=== PATIENT | male | born 1940 | race Caucasian/White ===

== ENCOUNTER 2020-03-28 23:16 | Inpatient (IN) | payer MEDICARE, MEDICAID, SELFPAY ==
--- NOTE | 2020-03-28 23:19 | P.HP_ITS ---
Providers/Chief Complaint Primary Care Provider: Yash Salinas Chief Complaint: CP History of Present Illness Kelvin Flores is a 80 year old male with history of grade 1 diastolic dysfunction, negative stress test 03/19, COPD, was recently started on Lasix by Dr. Justice on 03/15 for mild diastolic congestive heart failure exacerbation came in from [facility] for chest pain. Patient is stating that he has been having epigastric discomfort for last 2 to 3 weeks especially on exertion, sometimes he has to get up to change his position in order to make himself comfortable, today around 2 PM he started experiencing excruciating epigastric pain radiating towards his back he thought he is going to . He went to the [facility] for further evaluation where first troponin was 44 and second troponin 47 EKG showed premature atrial beats with tachycardia, patient symptoms got relieved with morphine and Dilaudid, CT abdomen did not reveal any ischemic bowel changes. Patient is stating that there is no relationship to food intake with his epigastric pain, he is describing this pain as sharp stabbing pain radiating towards his back 06/10, he is not stating chest discomfort, he is denying diarrhea, nausea, vomiting, palpitations, presyncope. He is taking prednisone and meloxicam, has history of peptic ulcer disease as well. He is not very active at baseline, lives alone, quit smoking 2005. Investigation from [facility] and lab work reviewed On arrival to the hospital blood pressure 136/94, afebrile, currently symptom- free I have requested CTA chest abdomen pelvis to rule out aortic dissection Make him n.p.o. Start ACS protocol Review of Systems Const: Reports: body aches and fatigue; Denies: fever(s) or chills Eyes: Denies: change in vision ENMT: Denies: throat pain Card: Reports: chest pain, swelling of feet/ankles and dyspnea on exertion; Denies: orthopnea Resp: Reports: dyspnea GI: Reports: abdominal pain and heartburn; Denies: nausea, vomiting, diarrhea or constipation : Denies: flank pain Musc: Denies: neck pain Skin/Breast: Denies: rash Neuro: Denies: headache(s) Psych: Denies: anxiety Endo: Denies: polyuria Jerardo/Lymph: Denies: easy bruising All/Imm: Denies: urticaria Medications/Allergies Home Medications Medication Instructions Recorded Confirmed Last Taken Type acetaminophen 500 mg tablet 1,000 mg PO BID PRN 03/15/20 03/29/20 03/28/20 09:00 History albuterol sulfate 90 mcg/actuation 2 puff INHALATION Q6H PRN 03/15/20 Unknown History aerosol inhaler amlodipine 10 mg tablet 10 mg PO DAILY 03/15/20 Unknown History budesonide 0.5 mg/2 mL suspension 0.5 mg INHALATION BID 30 Days #120 03/15/20 03/15/20 Unknown Rx for nebulization ml budesonide-formoterol HFA 160 2 puff INHALATION BID 03/15/20 Unknown History mcg-4.5 mcg/actuation aerosol inhaler finasteride 5 mg tablet 5 mg PO DAILY 03/15/20 Unknown History formoterol fumarate 20 mcg/2 mL 2 ml INHALATION Q12H 30 Days #120 03/15/20 03/15/20 Unknown Rx solution for nebulization ml furosemide 20 mg tablet 20 mg PO DAILY 30 Days #30 tab 03/15/20 03/15/20 Unknown Rx ipratropium 0.5 mg-albuterol 3 mg 3 ml INHALATION Q6H PRN 03/15/20 Unknown History (2.5 mg base)/3 mL nebulization soln lidocaine 5 % topical patch 1 patch TOPICAL DAILY 03/15/20 Unknown History omeprazole 20 mg capsule,delayed 20 mg PO DAILY 03/15/20 Unknown History release prednisone 10 mg tablet 10 mg PO DAILY 03/15/20 Unknown History revefenacin 175 mcg/3 mL solution 175 mcg INHALATION DAILY 30 Days 03/15/20 03/15/20 Unknown Rx for nebulization #90 ml tiotropium bromide 18 mcg capsule 1 cap INHALATION DAILY 03/15/20 Unknown History with inhalation device Allergies Allergy/AdvReac Type Severity Reaction Status Date / Time dextromethorphan Allergy Intermediate ALGY-Difficulty Verified 03/15/20 16:49 Breathing guaifenesin Allergy Intermediate ALGY-Difficulty Verified 03/15/20 16:49 Breathing tamsulosin Allergy Intermediate ALGY-Difficulty Verified 03/15/20 16:49 Breathing gabapentin AdvReac Intermediate ADR-Dizzine Verified 03/15/20 16:49 ss loratadine AdvReac Intermediate ADR-Vomitin Verified 03/15/20 15:26 g PFSH Acute PFSH: Medical History Acute and chronic respiratory failure Benign hypertension Blind right eye BPH (benign prostatic hyperplasia) CAP (community acquired pneumonia) Chronic obstructive pulmonary disease GERD (gastroesophageal reflux disease) Old NH (myocardial infarction) PUD (peptic ulcer disease) Tremor Surgical History H/O eye surgery History of cholecystectomy S/P hernia surgery Family History Other CAD (coronary artery disease) Diabetes Social History Smoking and tobacco status: former smoker Quit status (tobacco): has quit using tobacco Year quit tobacco: 2005 - 1PPD x 40 Years Alcohol intake: never Lives independently: Yes Household members: none Marital status: / service: No Current occupational status: retired History of recent travel: No Current gender identity: Male Physical Exam Narrative: EXAM NARRATIVE: Head to toe examination This is a pleasant male who is currently symptom-free laying comfortable in his bed S1, S2 grade 2/6 systolic murmur appreciated Lower extremity edema 2+ Abdomen distended, mild tenderness in mid epigastric region, no pulsatile mass seen, bowel sounds present No radial delay identified No hemodynamic compromise Bilateral breath sounds diminished without active wheezing EOMI, PERRLA No active skin ulcers Neuro extremity gangrene or ulcer Neurologically nonfocal exam Data : 03/29/20 00:45 03/29/20 00:45 A&P Assessment and plan (1) Atypical chest pain: Status: Acute (2) CHF exacerbation: Status: Acute (3) Epigastric pain: Status: Acute Additional A&P Information Atypical chest pain Patient is describing his symptoms as epigastric pain which gets aggravated with change in position, he is describing his pain as sharp stabbing in nature which is radiating towards his back Rule out aortic dissection, however clinically no vascular compromise, would get CTA Echo in the morning to see wall motion abnormality Would get another set of troponin with serial EKGs, considering the fact he had a stress test done around same time last year, I would not repeated at this point, will get cardiology input in the morning, I would start aspirin, statin, Plavix lisinopril, give GI cocktail Current EKG showing ectopic atrial beats without any ischemic or infarctive changes Diastolic congestive heart failure exacerbation Grade 1 diastolic dysfunction Patient recently started using Lasix about 2 weeks ago He has 2+ lower extremity edema We will follow-up with echo COPD: No active exacerbation He is following up with Dr. Justice for his severe class D COPD DuoNeb every 6 hours Levaquin for right lower lobe concerning changes for pneumonia History of peptic ulcer disease: Continue Protonix, hold meloxicam, prednisone and GI cocktail x1 Full code N.p.o. DVT prophylaxis not needed currently getting therapeutic dose of Lovenox Attestations Medical Necessity Statement*: Anticipating stay in the hospital cross more than 2 midnights currently need evaluation to rule out etiology for his epigastric discomfort, on ACS protocol, need to rule out aortic dissection, awaiting CTA results Time Spent in Patient Care: (>than 50% of time spent in counselling and/or dir ect pt care on unit) . 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
[2020-03-28 23:21] VITALS: BP 139/88; PULSE 74; RESP 22; TEMP 36.7; O2SAT 98; BMI 27.8
--- NOTE | 2020-03-28 23:22 | ED_ITS ---
HPI - Chest Pain General: Stated Complaint: CP Time Seen by Provider: 03/28/20 23:16 Source: patient and EMS Mode of arrival: EMS Limitations: no limitations History of Present Illness: HPI narrative: 80-year-old male who presents here with chest pain. Patient was seen at [facility] and transferred here for admittance for ACS rule out. Patient is currently pain-free. He has no COVID-like symptoms and no fever. He does have a history of COPD. CT abdomen at [facility] was negative. Troponin was elevated. MD complaint: chest pain Associated symptoms: Reports dyspnea; Deny abdominal pain, fever(s), nausea or vomiting Review of Systems Const: Denies: fever(s), chills, body aches or change in appetite Eyes: Denies: blurry vision or eye discomfort ENMT: Denies: throat pain or dental pain Card: Reports: chest pain Resp: Reports: dyspnea GI: Denies: abdominal pain, nausea, vomiting or diarrhea : Denies: dysuria Musc: Denies: neck pain or back pain Skin/Breast: Denies: rash Neuro: Denies: headache(s) Psych: Denies: depression Jerardo/Lymph: Denies: easy bruising All/Imm: Denies: urticaria PFSH ED PFSH: Medical History (Updated 03/28/20 @ 23:24 by Amando Rico MD) Acute and chronic respiratory failure Benign hypertension Blind right eye BPH (benign prostatic hyperplasia) CAP (community acquired pneumonia) Chronic obstructive pulmonary disease GERD (gastroesophageal reflux disease) Old [place] (myocardial infarction) PUD (peptic ulcer disease) Tremor Surgical History H/O eye surgery History of cholecystectomy S/P hernia surgery Family History Other CAD (coronary artery disease) Diabetes Social History Smoking and tobacco status: former smoker Quit status (tobacco): has quit using tobacco Year quit tobacco: 2005 - 1PPD x 40 Years Alcohol intake: never Lives independently: Yes Household members: none Marital status: / service: No Current occupational status: retired History of recent travel: No Current gender identity: Male Physical Exam Const: COMMON NORMALS: no acute distress, patient oriented x3 and healthy appearing HENMT: COMMON NORMALS: normocephalic and atraumatic HEAD & SCALP: normoc ephalic and atraumatic Eye: COMMON NORMALS: Equal, round and reactive pupils present and EOMs intact bilaterally PUPIL: Yes Equal, round and reactive pupils present Neck/C-Spine: COMMON NORMALS: full ROM and supple Chest: COMMONS NORMALS: normal inspection of the chest and normal palpation of entire chest wall Resp: COMMON NORMALS: normal respiratory effort, No retractions, No use of accessory muscles and clear to auscultation bilaterally AUSCULTATION: clear to auscultation bilaterally Cardio: COMMON NORMALS: regular rate, regular rhythm and No murmurs present (Cardio) RATE: regular rate RHYTHM: regular rhythm GI: COMMON NORMALS: Normal to inspection, nondistended, normoactive bowel sounds present, Soft to palpation, non-tender and no masses PALPATION: Yes Soft to palpation Extremity: COMMON NORMALS: normal to inspection and full ROM Neuro: COMMON NORMALS: patient oriented x3, moves all extremities and no focal motor deficits Psych: COMMON NORMALS: mental status grossly normal, Normal thought process present and cooperative THOUGHT PROCESS: Normal thought process present Skin: COMMON NORMALS: no rashes or lesions noted and no wounds GENERAL SKIN EXAM: no rashes or lesions noted MDM - Chest Pain MDM Narrative: Medical decision making narrative: Patient presents with chest pain and is to be admitted to Dr. Orantes. Patient is pain-free here and has no cold-like symptoms. Will admit to the cardiac stepdown unit. Discharge Plan Discharge Patient Disposition: Admitted As Inpatient Clinical Impression: Chest pain Condition: Stable Prescriptions: No Action prednisone 10 mg tablet 10 mg PO DAILY RF: 0 albuterol sulfate 90 mcg/actuation HFA aerosol inhaler 2 puff INHALATION Q6H PRNRF: 0 Spiriva with HandiHaler 18 mcg capsule, w/inhalation device 1 cap INHALATION DAILY RF: 0 amlodipine 10 mg tablet 10 mg PO DAILY RF: 0 finasteride [Proscar] 5 mg tablet 5 mg PO DAILY RF: 0 omeprazole 20 mg capsule,delayed release(DR/EC) 20 mg PO DAILY RF: 0 budesonide-formoterol [Symbicort] 160-4.5 mcg/actuation HFA aerosol inhaler 2 puff INHALATION BID RF: 0 lidocaine 5 % adhesive patch,medicated 1 patch TOPICAL DAILY RF: 0 ipratropium-albuterol 0.5 mg-3 mg(2.5 mg base)/3 mL solution for nebulization 3 ml INHALATION Q6H PRNRF: 0 acetaminophen [Tylenol Extra Strength] 500 mg tablet 500 mg PO Q6H PRNRF: 0 furosemide [Lasix] 20 mg tablet 20 mg PO DAILY 30 Days Qty: 30 RF: 0 revefenacin 175 mcg/3 mL solution for nebulization 175 mcg INHALATION DAILY 30 Days Qty: 90 RF: 3 budesonide [Pulmicort] 0.5 mg/2 mL suspension for nebulization 0.5 mg INHALATION BID 30 Days Qty: 120 RF: 3 Perforomist 20 mcg/2 mL solution for nebulization 2 ml INHALATION Q12H 30 Days Qty: 120 RF: 3 Referrals: Yash Salinas [Primary Care Provider] - Coding Level of Care Code ED Sound Controller for Chari Ortiz
[2020-03-28 23:26] VITALS: BP 139/88; PULSE 72; RESP 14; O2SAT 97
[2020-03-28 23:50] VITALS: BP 133/83; PULSE 74; RESP 16; O2SAT 97
--- NOTE | 2020-03-28 23:55 | PC.NURSE ---
i agree with this assessment
[2020-03-29] VITALS (17 sets, daily range): BP systolic 113–136; BP diastolic 72–94; PULSE 76–117; RESP 16–23; TEMP 36.3–37.3; O2SAT 92–98
--- NOTE | 2020-03-29 00:16 | USCV_ITS ---
Kelvin Flores Age: 80 Gender: M : 1940 Exam Date: 03/29/2020 06:57 Ordering Phys: Lobito Shepherd MD Technologist: Lyric Padilla Exam Location: [facility] [place] Indication: NSTEMI BP: 113 / 74 HR: 84 Rhythm: Sinus Technical Quality: Technically difficult study MEASUREMENTS (Male / Female) Normal Values 2D ECHO LV Diastolic Diameter PLAX 3.3 cm 4.2 - 5.9 / 3.9 - 5.3 cm LV Systolic Diameter PLAX 1.9 cm LV Chamber Size 3.8 cm IVS Diastolic Thickness 1.4 cm 0.6 - 1.0 / 0.6 - 0.9 cm IVS Systolic Thickness 1.7 cm LVPW Diastolic Thickness 1.7 cm 0.6 - 1.0 / 0.6 - 0.9 cm LVPW Systolic Thickness 1.7 cm RV Chamber Size 3.1 cm LVOT Diameter 2.0 cm LV Ejection Fraction 2D Teich 74.3 % LV Ejection Fraction MOD 2C 36.9 % LV Ejection Fraction 2C AL 33.4 % LA Diameter 5.0 cm LA Width 2.3 cm LA Height 4.3 cm RA Width 2.9 cm RA Height 3.6 cm Aorta at Sinotubular Diameter 3.8 cm M-MODE LV Diastolic Diameter MM 7.3 cm 4.2 - 5.9 / 3.9 - 5.3 cm LV Systolic Diameter MM 6.2 cm LV Ejection Fraction MM Teich 31.0 % IVS Diastolic Thickness MM 1.4 cm 0.6 - 1.0 / 0.6 - 0.9 cm IVS Systolic Thickness MM 2.1 cm LVPW Diastolic Thickness MM 1.9 cm 0.6 - 1.0 / 0.6 - 0.9 cm LVPW Systolic Thickness MM 2.3 cm Aortic Annulus Diameter 4.1 cm LA Ao Ratio MM 1.2 MV E Point Septal Separation 0.8 cm DOPPLER AV Peak Velocity 136.0 cm/s LVOT Peak Velocity 99.0 cm/s AV Area Cont Eq vti 3.0 cm squared AV Area Cont Eq pk 2.3 cm squared MV Area PHT 3.9 cm squared Mitral E to A Ratio 0.6 MV E' Velocity 6.0 cm/s Mitral E to MV E' Ratio 9.2 Mitral E to LV E' Lateral Ratio 8.6 Mitral E to LV E' Septal Ratio 10.1 TR Peak Velocity 225.7 cm/s TR Peak Gradient 20.4 mmHg TR Mean Velocity 167.0 cm/s TR Mean Gradient 13.2 mmHg TR Velocity Time Integral 67.5 cm Right Atrial Pressure 5.0 mmHg Pulmonary Artery Systolic Pressu 25.4 mmHg PV Peak Velocity 85.0 cm/s RV Acceleration Time 0.2 s RV Ejection Time 0.3 s RV AcT/ET 0.6 FINDINGS Left Ventricle Normal left ventricular size and systolic function, EF 74%. No gross wall motion normalities.Grade I/IV diastolic dysfunction (abnormal relaxation filling pattern), normal to mildly elevated filling pressures. Right Ventricle The right ventricle is normal in size and function. Right Atrium The right atrium is normal in size. Left Atrium The left atrium is normal in size. Mitral Valve No gross abnormalities noted Aortic Valve Thickened aortic valve. Tricuspid Valve Trace tricuspid valve regurgitation. Pulmonic Valve Pulmonic valve not well visualized. Pericardium Normal pericardium without effusion. Aorta Prominent right coronary sinus CONCLUSIONS Normal left ventricular size and systolic function, EF 74%. No gross wall motion normalities.Grade I/IV diastolic dysfunction (abnormal relaxation filling pattern), normal to mildly elevated filling pressures. Thickened aortic valve. Trace tricuspid valve regurgitation. Estimated pulmonary artery peak systolic pressure 25 mmHg There is no pericardial effusion. There are no intracardiac masses. Prominent right coronary sinus, aortic root measuring 3.8 cm at the level of the sinuses No previous study is available for comparison. Dr Flakita Hernández MD FAC (Electronically Signed) Final Date: 29 March 2020 09:40 S
--- NOTE | 2020-03-29 00:16 | ECG_ITS ---
[facility] Test Date: 2020-03-28 Pat Name: Kelvin Flores Department: Room: 111 Gender: Male Check Grader: Roxie PHILLIPSB: 1940 Requested By: Lobito Shepherd Order Number: [id number] Julissa MD: Flakita Hernández M.D. Measurements Intervals [place] Rate: 78 P: 71 NV: 131 QRS: 69 QRSD: 134 T: 49 QT: 392 QTc: 447 Interpretive Statements SINUS RHYTHM RIGHT BUNDLE BRANCH BLOCK [120+ ms QRS DURATION, UPRIGHT V1, 40+ ms S IN I/aVL/V4/V5/V6] Compared to ECG 02/27/2019 05:58:25 No significant changes Electronically Signed On 03-30-2020 0:18:43 CDT by Flakita Hernández M.D. [id number]
--- NOTE | 2020-03-29 00:30 | PC.NURSE ---
Patient brought down by wheelchair. Patient is alert and oriented. Patient placed on telemetry and vitals obtained. Med list not obtained due to patient not being for sure what he takes, no list or bottles brought with patient. Patient uses [facility] in [facility]. Patient updated on vistor policy, password given to patient, and patient is wearing a mask. Will continue to monitor.
[2020-03-29] MEDS: atorvastatin 40 mg Tablet 80 MG PO (00:33)
[2020-03-29] MEDS: clopidogrel 300 mg Tablet PO (00:34)
[2020-03-29] MEDS: enoxaparin 100 mg/mL Syringe 90 MG SUBCUT ×2 (00:34→12:40)
[2020-03-29 00:53] LABS: Basophils # 0.1 10^3/uL (0.0-0.1); Basophils % 0.6 %; Eosinophils # 0.1 10^3/uL (0.0-0.8); Eosinophils % 1.1 %; Hematocrit 48.9 % (42.0-52.0); Hemoglobin 15.4 g/dL (11.7-16.6); Lymphocytes # 2.3 10^3/uL (0.8-4.8); Lymphocytes % 18.8 %; Mean Corpuscular HGB Conc 31.5 g/dL (30.0-36.0); Mean Corpuscular Hemoglobin 28.9 pg (28.0-34.0); Mean Corpuscular Volume 91.9 fL (80-94); Mean Platelet Volume 9.2 fL (7.4-10.4); Monocytes # 0.9 10^3/uL (0.2-0.9); Monocytes % 7.6 %; Neutrophils # 8.82 10^3/uL (1.8-7.7); Neutrophils % 71.2 %; Nucleated Red Blood Cells % 0 %; Platelet Count 216 10^3/cmm (130-400); Red Blood Count 5.32 10^6/uL (4.1-5.3); Red Cell Distribution Width 13.6 % (12.1-15.1); White Blood Count 12.4 10^3/uL (4.0-10.0)
--- NOTE | 2020-03-29 00:55 | CTR_ITS ---
PROCEDURE INFORMATION: Exam: CT Angiography Chest With Contrast Exam date and time: 03/29/2020 1:22 AM Age: 80 years old Clinical indication: Abdominal pain; Generalized; Chest pain; Type not specified; Prior surgery; Surgery type: Hernia repair, gb; Additional info: Sharp pain going towards back TECHNIQUE: Imaging protocol: Computed tomographic angiography of the chest with intravenous contrast. 3D rendering: MIP and/or 3D reconstructed images were created by the technologist. Radiation optimization: All CT scans at this facility use at least one of these dose optimization techniques: automated exposure control; mA and/or kV adjustment per patient size (includes targeted exams where dose is matched to clinical indication); or iterative reconstruction. Contrast material: OMNI 350; Contrast volume: 95 ml; Contrast route: INTRAVENOUS (IV); COMPARISON: No relevant prior studies available. RADIATION DOSE METRICS: Total DLP (mGy-cm): 1921.99 FINDINGS: Pulmonary arteries: The pulmonary arteries are adequately opacified for evaluation to the subsegmental level. There is no filling defect to suggest embolism. Aorta: There is moderate aortic atherosclerotic disease. There is no aortic dissection or aneurysm. Lungs: There is severe upper lung predominant centrilobular emphysema. Pleural space: Unremarkable. No pneumothorax. No pleural effusion. Heart: Heart size is normal. There is no pericardial effusion. There is moderate coronary artery calcification. Lymph nodes: There is no mediastinal or hilar lymphadenopathy. Bones/joints: There is epidural lipomatosis in the upper thoracic spine resulting in moderate narrowing of the thecal sac from T4 through T7. Bones are unremarkable. Soft tissues: The extrathoracic soft tissues are unremarkable. IMPRESSION: 1. No pulmonary embolism. 2. Right lower lung opacity, volume loss and bronchial wall thickening. Possible acute bronchitis and bronchopneumonia. 3. 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 PROCEDURE INFORMATION: Exam: CT Abdomen And Pelvis With Contrast Exam date and time: 03/29/2020 1:22 AM Age: 80 years old Clinical indication: Abdominal pain; Generalized; Chest pain; Type not specified; Prior surgery; Surgery type: Hernia repair, gb; Additional info: Sharp pain going towards back TECHNIQUE: Imaging protocol: Computed tomography of the abdomen and pelvis with intravenous contrast. Radiation optimization: All CT scans at this facility use at least one of these dose optimization techniques: automated exposure control; mA and/or kV adjustment per patient size (includes targeted exams where dose is matched to clinical indication); or iterative reconstruction. Contrast material: OMNI 350; Contrast volume: 95 ml; Contrast route: INTRAVENOUS (IV); COMPARISON: No relevant prior studies available. RADIATION DOSE METRICS: Total DLP (mGy-cm): 1921.99 FINDINGS: Liver: There is diffuse low-attenuation of the liver relative to the spleen consistent with fatty infiltration. There is no focal liver abnormality. Gallbladder and bile ducts: The gallbladder is absent. There is no intrahepatic or extrahepatic bile duct dilation. Pancreas: The pancreas is unremarkable. Spleen: Splenic size is normal. There are scattered calcifications consistent with healed granulomas. Adrenals: The adrenal glands are unremarkable. Kidneys and ureters: There is a simple cyst in the right kidney. There is no hydronephrosis or ureteral dilation. Intrarenal stones could be obscured by dense contrast in the collecting systems. Stomach and bowel: The stomach is decompressed, preventing meaningful evaluation of wall thickness. The small bowel is nondilated. There is mild distal descending and sigmoid colonic diverticulosis without evidence of diverticulitis. Appendix: The appendix is normal. Intraperitoneal space: There is no free air or significant intraperitoneal free fluid. Vasculature: The portal, splenic and superior mesenteric veins are patent. There is moderate aortic atherosclerotic disease. There is no aortic dissection or aneurysm. Lymph nodes: There is no lymphadenopathy in the retroperitoneum, mesentery, pelvis or inguinal regions. Bladder: The urinary bladder is unremarkable. Reproductive: The prostate and seminal vesicles are unremarkable. Bones/joints: There is mild degenerative disease in the lumbar spine. Soft tissues: The abdominal wall is intact. CT/CT angio chest abdomen pelvis IMPRESSION: 1. No acute findings. 2. Incidental findings above. COMMENTS: Consistent with the [place] [employer]'s Incidental Findings Committee white paper (J Am Radha Radiol 2018): Any incidental renal lesion less than 1.0 cm or classified as too small to characterize, or any incidental cystic renal lesion characterized as simple-appearing, is likely benign. No follow-up imaging is recommended for these lesions per consensus recommendations based on imaging criteria. Radiation Dose CTDIVOL = (mGy): DLP = 1921.99~1921.99 (mGy-cm)
[2020-03-29 01:10] LABS: D Dimer <= 0.27 ug/mIFEU (0-0.59)
[2020-03-29 01:11] LABS: Anion Gap 13.6 (5-19); Blood Urea Nitrogen 27 mg/dL (8-23); Calcium 9.2 mg/dL (8.5-10.5); Carbon Dioxide 28 mmol/L (22-29); Chloride 103 mmol/L (98-107); Glucose 102 mg/dL (65-115); Osmolality Calculated 287 mOsm/kg (285-295); Potassium 4.6 mmol/L (3.5-5.1); Sodium 140 mmol/L (136-145)
[2020-03-29 01:14] LABS: Troponin(5th) Baseline 55 ng/L (0-15)
--- NOTE | 2020-03-29 01:27 | ECG_ITS ---
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 Measurements Intervals [place] Rate: 78 P: 146 MI: 136 QRS: 144 QRSD: 142 T: 98 QT: 392 QTc: 447 Interpretive Statements SINUS RHYTHM WITH OCCASIONAL SUPRAVENTRICULAR PREMATURE COMPLEXES Right bundle branch block pattern ARM LEADS REVERSED [INVERTED P AND QRS IN I] INTERPRETATION BASED ON A DEFAULT AGE OF 40 YEARS Compared to ECG 03/28/2020 23:42:51 Right bundle-branch block no longer present Electronically Signed On 03-30-2020 0:25:41 CDT by Flakita Hernández M.D. [id number]
[2020-03-29] MEDS: iohexol 350 mg/mL 100 mL Btl IV (01:46)
[2020-03-29 01:56] LABS: NT Pro B Type Natriuretic Pept 75 pg/mL (0-450)
--- NOTE | 2020-03-29 03:08 | PC.NURSE ---
Called Dr. Shepherd regarding patients Gi cocktail. Patient received a GI cocktail at [facility] and Dr. Shepherd stated he did not need to receive another dose so non amended.
[2020-03-29 04:47] LABS: Troponin 5 2HR 59.52 ng/L (0-15); Troponin 5 2HR Delta 4.52 ABS# (0-10)
--- NOTE | 2020-03-29 05:23 | ECG_ITS ---
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 Measurements Intervals [place] Rate: 83 P: 64 IL: 142 QRS: 85 QRSD: 134 T: 52 QT: 382 QTc: 449 Interpretive Statements SINUS RHYTHM RIGHT BUNDLE BRANCH BLOCK [120+ ms QRS DURATION, UPRIGHT V1, 40+ ms S IN I/aVL/V4/V5/V6] Compared to ECG 03/29/2020 03:35:10 Right bundle-branch block now present Electronically Signed On 03-30-2020 0:19:16 CDT by Flakita Hernández M.D. [id number]
--- NOTE | 2020-03-29 05:28 | PC.NURSE ---
Spoke with Dr. Shepherd. Ordered to hold off on transfer order to Med Surg at this time. Ordered to get an EKG at this time.
[2020-03-29] MEDS: levoFLOXacin 750 mg Tablet PO (06:01)
[2020-03-29 07:21] LABS: Troponin 5 6HR 57.48 ng/L (0-15); Troponin 5 6HR Delta 2.48 ng/L (0-12)
--- NOTE | 2020-03-29 08:27 | P.CONIM_ITS ---
Providers/Reason For Consult Consulting Physican/Specialty*: SANDER Hernández/Cardiology Reason for Consult*: CP/ Elevated troponin I Attending Physician: Jasmeet Suazo Primary Care Provider: Yash Salinas History of Present Illness History of Present Illness Kelvin Flores is a 80 year old male with a history of essential benign hypertension, he presenting with complaints of epigastric pain/back pain for the last 3 weeks or so. He has a history of GERD. Patient is complaining of a constant pain with intermittent waxing and waning. The pain was moderate in intensity to begin with. But last night, it got worse. The pain was radiating to the back. He may have some associated nausea. No vomiting no palpitation no dizziness or syncopal episode. No unusual shortness of breath. No fever, chills or cough. No diarrhea. No dysuria. No previous history for coronary artery disease, myocardial infarction or congestive heart failure. Review of Systems Narrative: CONSTITUTIONAL: No fever or chills. EYES: No blurring of vision or other visual disturbances lately. ENT: No hoarseness of voice, auditory disturbances or sore throat. CARDIOVASCULAR: As mentioned above. RESPIRATORY: No significant cough. GASTROINTESTINAL: Abdominal pain as mentioned above GENITOURINARY: No dysuria or hematuria. INTEGUMENTARY: No skin rashes or history of skin cancer. NEURO: No transient ischemic attacks or amaurosis. PSYCHIATRIC: No history of psychosis or major depression. HEMATOLOGIC: No bleeding disorders or significant anemia. ENDOCRINE: No history of polyuria or polydipsia. MUSCULOSKELETAL: No recent joint pain or swelling. ALLERGY/IMMUNOLOGY: As mentioned above. Meds/Allergies Home Medications and Allergies Home Medications Medication Instructions Recorded Confirmed Last Taken Type acetaminophen 500 mg tablet 1,000 mg PO BID PRN 03/15/20 03/29/20 03/28/20 09:00 History albuterol sulfate 90 mcg/actuation 2 puff INHALATION Q6H PRN 03/15/20 03/29/20 Unknown History aerosol inhaler amlodipine 10 mg tablet 10 mg PO DAILY 03/15/20 03/29/20 Unknown History budesonide-formoterol HFA 160 2 puff INHALATION BID 03/15/20 03/29/20 Unknown History mcg-4.5 mcg/actuation aerosol inhaler finasteride 5 mg tablet 5 mg PO DAILY 03/15/20 03/29/20 Unknown History formoterol fumarate 20 mcg/2 mL 2 ml INHALATION Q12H 30 Days #120 03/15/20 03/29/20 Unknown Rx solution for nebulization ml furosemide 20 mg tablet 20 mg PO DAILY 30 Days #30 tab 03/15/20 03/29/20 Unknown Rx ipratropium 0.5 mg-albuterol 3 mg 3 ml INHALATION Q6H PRN 03/15/20 03/29/20 Unknown History (2.5 mg base)/3 mL nebulization soln lidocaine 5 % topical patch 1 patch TOPICAL DAILY 03/15/20 03/29/20 Unknown History omeprazole 20 mg capsule,delayed 20 mg PO DAILY 03/15/20 03/29/20 Unknown History release prednisone 10 mg tablet 10 mg PO BID 03/15/20 03/29/20 Unknown History revefenacin 175 mcg/3 mL solution 175 mcg INHALATION DAILY 30 Days 03/15/20 03/29/20 Unknown Rx for nebulization #90 ml Allergies Allergy/AdvReac Type Severity Reaction Status Date / Time dextromethorphan Allergy Intermediate ALGY-Difficulty Verified 03/15/20 16:49 Breathing guaifenesin Allergy Intermediate ALGY-Difficulty Verified 03/15/20 16:49 Breathing tamsulosin Allergy Intermediate ALGY-Difficulty Verified 03/15/20 16:49 Breathing gabapentin AdvReac Intermediate ADR-Dizzine Verified 03/15/20 16:49 ss loratadine AdvReac Intermediate ADR-Vomitin Verified 03/15/20 15:26 g Current Medications Current Medications Generic Name Dose Route Start Last Admin Trade Name Freq PRN Reason Stop Dose Admin Enoxaparin Sodium 90 mg 03/29/20 00:30 03/29/20 00:34 Lovenox SUBCUT 90 mg Q12H RUBINA Administration Levofloxacin 750 mg 03/29/20 06:00 03/29/20 06:01 Levaquin PO 750 mg DAILY@0600 RUBINA Administration Protocol PFSH Acute PFSH: Medical History Acute and chronic respiratory failure Benign essential hypertension with target blood pressure below 140/90 Benign hypertension Blind right eye BPH (benign prostatic hyperplasia) CAP (community acquired pneumonia) Chronic obstructive pulmonary disease Elevated troponin level GERD (gastroesophageal reflux disease) Old [place] (myocardial infarction) PUD (peptic ulcer disease) Tremor Surgical History H/O eye surgery History of cholecystectomy S/P hernia surgery Family History Other CAD (coronary artery disease) Diabetes Social History Smoking and tobacco status: former smoker Quit status (tobacco): has quit using tobacco Year quit tobacco: 2005 - 1PPD x 40 Years Alcohol intake: never Lives independently: Yes Household members: none Marital status: / service: No Current occupational status: retired History of recent travel: No Current gender identity: Male Vitals/I&O/Wt Last Vital Signs Temp 97.6 F 03/29/20 04:01 Pulse 93 03/29/20 08:17 Resp 20 H 03/29/20 08:17 BP 113/74 03/29/20 04:01 Pulse Ox 93 03/29/20 08:17 03/28/20 03/29/20 03/29/20 22:59 06:59 14:59 Output Total 250 / 250 Balance -250 / -250 Weight last 48 hrs Weight 205 lb Physical Exam Narrative: EXAM NARRATIVE: GENERAL: The patient is alert and oriented times three. Not in any acute distress. HEENT: No significant pallor, icterus or lymphadenopathy. The fundus is not visualized NECK: Trachea appears to be central. No masses noted. No JVD or thyromegaly appreciated. No carotid bruit. RESPIRATORY: Chest is symmetrical. No intercostals muscle retraction or any accessory muscle activation. There is no chest wall tenderness. Breath sounds are heard bilaterally. No rales or rhonchi heard. No evidence of any consolidation. BREASTS: Deferred. HEART: The PMI is in the 5th left intercostals space just inside the midclavicular line. No palpable precordial events. S1 and S2 are normal. No S3 or S4 heard. No pericardial rub or any click heard. ABDOMEN: No vessel pulsations or distention. No tenderness. No organomegaly appreciated. No abdominal bruit. Bowel sounds are normally heard. : Deferred. RECTAL: Deferred. LYMPHATIC: No lymphadenopathy noted in the neck or groin. EXTREMITIES: No edema or cyanosis. No clubbing. The pulses are symmetrical bilaterally. The radial, femoral, dorsalis pedis and the posterior tibial pulses are palpated and found to be in good volume and amplitude. MUSCULOSKELETAL: Acute joint deformities or swelling SKIN: There are no significant scars or skin rash noted. NEUROPSYCHIATRIC: The patient is alert and oriented x3. Appears to be in a good mood. The higher functions are grossly within normal limits. No tremors or rigidity noted. Data Labs: Other Labs: Laboratory Last Values WBC 12.4 10^3/uL (4.0 -10.0) H 03/29/20 00:45 RBC 5.32 10^6/uL (4.1 -5.3) H 03/29/20 00:45 Hgb 15.4 g/dL (11.7-1 6.6) 03/29/20 00:45 Hct 48.9 % (42.0-52.0 ) 03/29/20 00:45 MCV 91.9 fL (80-94) 03/29/20 00:45 MCH 28.9 pg (28.0-34. 0) 03/29/20 00:45 MCHC 31.5 g/dL (30.0-3 6.0) 03/29/20 00:45 RDW 13.6 % (12.1-15.1 ) 03/29/20 00:45 Plt Count 216 10^3/cmm (130 -400) 03/29/20 00:45 MPV 9.2 fL (7.4-10.4) 03/29/20 00:45 Neut % (Auto) 71.2 % 03/29/20 00:45 Lymph % (Auto) 18.8 % 03/29/20 00:45 [place] % (Auto) 7.6 % 03/29/20 00:45 Eos % (Auto) 1.1 % 03/29/20 00:45 Baso % (Auto) 0.6 % 03/29/20 00:45 Neut # (Auto) 8.82 10^3/uL (1.8 -7.7) H 03/29/20 00:45 Lymph # (Auto) 2.3 10^3/uL (0.8- 4.8) 03/29/20 00:45 [place] # (Auto) 0.9 10^3/uL (0.2- 0.9) 03/29/20 00:45 Eos # (Auto) 0.1 10^3/uL (0.0- 0.8) 03/29/20 00:45 Baso # (Auto) 0.1 10^3/uL (0.0- 0.1) 03/29/20 00:45 Nucleated RBC % (a uto) 0 % 03/29/20 00:45 Nucleated RBCs # 0.0 /100WBC 03/29/20 00:45 D-Dimer <= 0.27 ug/mIFEU (0-0.59) 03/29/20 00:45 Sodium 140 mmol/L (136-1 45) 03/29/20 00:45 Potassium 4.6 mmol/L (3.5-5 .1) 03/29/20 00:45 Chloride 103 mmol/L (98-10 7) 03/29/20 00:45 Carbon Dioxide 28 mmol/L (22-29) 03/29/20 00:45 Anion Gap 13.6 (5-19) 03/29/20 00:45 BUN 27 mg/dL (8-23) H 03/29/20 00:45 Creatinine 1.0 mg/dL (0.7-1. 2) 03/29/20 00:45 GFR Calculation Not Reportable 03/29/20 00:45 Glucose 102 mg/dL (65-115 ) 03/29/20 00:45 Calculated Osmolal ity 287 mOsm/kg (285- 295) 03/29/20 00:45 Calcium 9.2 mg/dL (8.5-10 .5) 03/29/20 00:45 Troponin T Baselin e 55 ng/L (0-15) H 03/29/20 00:45 Troponin T 120 Min oswaldo 59.52 ng/L (0-15) H 03/29/20 03:00 Delta Troponin T 4.52 ABS# (0-10) 03/29/20 03:00 Troponin T Hi Sens 6Hr 57.48 ng/L (0-15) H 03/29/20 06:46 Troponin T Hi Sens 6Hr Delta 2.48 ng/L (0-12) 03/29/20 06:46 NT-Pro-B Natriuret Pep 75 pg/mL (0-450) 03/29/20 00:45 Imaging^: Myocardial perfusion imaging: My impression: Study was done on 03/09/2019 1. Small sized perfusion abnormality of basal to mid inferior, mid inferoseptal and inferolateral burrows on rest images with improvement tracer uptake on stress images. This is suggestive of attenuation artifact. 2. The left ventricular ejection fraction is hyperdynamic with a value of 84% and regional wall motion abnormality. 3. TID ratio of 1.3. This is of limited clinical significance in absence of ischemia. 4. No coronary ischemia based on this study. 5. Scan indicates low risk for cardiac events. EKG^: EKG 1: My Interpretation: The EKG showed normal sinus rhythm with right bundle branch block. No acute ST-T changes. A&P Assessment and plan (1) Elevated troponin level: The etiology of the elevated troponin T is not clear at this time. His EKG is unremarkable. Apparently the patient has been having the symptoms for the last 15 days or so, more or less constant pain with waxing and waning. A noncardiac etiology need to be looked into. Intestinal ischemia is a consideration. An echocardiogram was done this morning that needs to be reviewed. Hemodynamically the patient seems to be stable. Status: Acute (2) Epigastric pain: Has a history of GERD. He had a cholecystectomy. He has significant tenderness in epigastric region. Other intra-abdominal pathology need to be considered. Further evaluation as per the primary attending. Status: Acute (3) Benign essential hypertension with target blood pressure below 140/90: Patient is currently normotensive. May continue on the current medications. Status: Acute (4) Chronic obstructive pulmonary disease: He has some scattered wheezing in the lung chino. Otherwise respiratory status seems to be stable. Status: Acute Qualifiers: COPD type: unspecified COPD Qualified Code(s): J44.9 - Chronic obstructive pulmonary disease, unspecified Additional A&P Information After reviewing the above and also based on the patient clinical progress, liv her recommendations will be made. Thank you for the opportunity to eval this patient make these recommendations. Coding Level of Care Code Acute Coat Repair Inspector for [facility] Medical Decision Making Moderate Complexity Diagnoses Elevated troponin level R79.89 Epigastric pain R10.13 Benign essential hypertension with target blood pressure below 140/90 I10 Chronic obstructive pulmonary disease J44.9 COPD type: unspecified COPD Time Spent (min) 55
[2020-03-29] MEDS: lisinopril 10 mg Tablet PO (08:55)
[2020-03-29] MEDS: aspirin 81 mg EC Tablet PO (08:55)
[2020-03-29] MEDS: pantoprazole DR 40 mg Tablet PO ×2 (08:55→17:37)
[2020-03-29] MEDS: clopidogrel 75 mg Tablet PO (08:55)
[2020-03-29] MEDS: finasteride 5 mg Tablet PO (08:55)
--- NOTE | 2020-03-29 09:25 | US_ITS ---
WS: [id number] ULTRASOUND ABDOMEN LIMITED CLINICAL INFORMATION: epigastric tenderness COMPARISON: None. FINDINGS: Technically difficult examination due to body habitus. Liver Size: Enlarged Craniocaudal length: 17.3 cm. Echogenicity: Coarse with fatty infiltration Surface nodularity: None. Mass (size and location): None. Bile ducts Intrahepatic ducts: Normal. Common bile duct diameter: 0.2 cm. Gallbladder Cholecystectomy Pancreas Normal as visualized.. Right kidney: Normal. Hydronephrosis: None. Size: 11.4 cm x 3.7 cm x 4.5 cm. Abdominal aorta and IVC Visualized portions are normal. Ascites: None. US/US gall bladder 14097 IMPRESSION: 1. Mild hepatomegaly with diffuse fatty infiltration. 2. Prior cholecystectomy 3. No hydronephrosis in right kidney.
--- NOTE | 2020-03-29 09:32 | P.PN_ITS ---
Subjective Subjective: Interval history: He reports yesterday his epigastric pain was very severe, reports currently is somewhat better. He says that at home he took some Mylanta which actually improved his symptoms. He is chronically on prednisone for his lung condition. He says that he no longer takes meloxicam and that this was switched over to Tylenol. He says that at one time in the [facility] he had ulcers in his stomach, although he is not sure whether he ever had EGD, although this was in the 80s. He says at one time more recently in ER doctor thought that maybe there was something wrong with his pancreas, and at that time was transferred for additional assessment to [place], but nothing was found there. He reports that his epigastric pain would sometimes get worse with activity. He does say that it started after he drank a milkshake. Vitals/I&O/Wt Last Vital Signs Temp 97.8 F 03/29/20 08:00 Pulse 93 03/29/20 08:17 Resp 20 H 03/29/20 08:17 BP 128/80 03/29/20 08:00 Pulse Ox 93 03/29/20 08:17 03/28/20 03/29/20 03/29/20 22:59 06:59 14:59 Output Total 250 / 250 100 / 100 Balance -250 / -250 -100 / -100 Weight last 48 hrs Weight 92.986 kg Physical Exam Const: COMMON NORMALS: no acute distress and patient oriented x3 GENERAL APPEARANCE: frail appearing NUTRITIONAL APPEARANCE: overweight HENMT: COMMON NORMALS: oropharynx normal Neck/C-Spine: COMMON NORMALS: no JVD Resp: COMMON NORMALS: normal respiratory effort AUSCULTATION: diminished lung sounds Cardio: COMMON NORMALS: no JVD, regular rhythm, S1 normal heart sound present, S2 normal heart sound present and No murmurs present (Cardio) RHYTHM: regular rhythm HEART SOUNDS: S1 normal heart sound present and S2 normal heart sound present GI: COMMON NORMALS: Normal to inspection, nondistended, normoactive bowel sounds present and Soft to palpation PALPATION: Yes Soft to palpation and Yes Tenderness to palpation present (GI) (epigastric worst, but mild generalized tenderness) Extremity: COMMON NORMALS: no joint enlargement GENERAL: Yes edema (2+ ankle) Neuro: COMMON NORMALS: patient oriented x3 and moves all extremities Skin: COMMON NORMALS: no rashes or lesions noted GENERAL SKIN EXAM: no rashes or lesions noted Data : 03/29/20 00:45 03/29/20 00:45 A&P Assessment and plan (1) Epigastric pain: Reports severe pain in the upper abdomen, reports this morning was radiating to the right upper quadrant. Says yesterday pain was very severe and he took some Mylanta which actually provided some relief. He is chronically on prednisone due to COPD. Reports that he stopped taking meloxicam previously, currently Tylenol. At this time will increase his PPI dose to twice daily. Add sucralfate. Will request for H. pylori stool antigen, serology. Discussed with him he would eventually benefit from endoscopic assessment for suspected gastritis/PUD, with smoking history. At this time n.p.o. for right upper quadrant ultrasound to assess for any additional other causes of pain apart from gastritis/PUD, and closer assessment of fatty liver changes. He declines to start with clear liquid diet afterward, and wants to just start GI soft. Says his appetite is currently good. Otherwise there is no evidence of bowel ischemia, large vessel dissection. No evidence of severe pancreatitis, however, will check lipase as he reports some history of possible pancreatic issue. He denies drinking any alcohol. Status: Acute (2) Atypical chest pain: Appreciate cardiac evaluation. Troponin has been elevated, but with flat trend. There is some T wave flattening in aVL, otherwise no suggestion of acute ischemic changes on EKG. Additional cardiac recommendations, after TTE is complete and read. Status: Acute (3) CHF exacerbation: There is mild peripheral swelling, he does not have significant shortness of breath, he is currently on 3-4 L of oxygen, appears to be at baseline currently. Exacerbation possibly mild if present. We will resume his daily Lasix dose. TTE Status: Acute (4) Pneumonia: Continue Levaquin. Oxygen support. Status: Acute Attestations Medical Necessity Statement*: Continue hospitalization for assessment and management of severe epigastric pain, assessment for possible cardiac condition, possible pancreatitis, as well as management of CHF exacerbation, pneumonia. Coding Level of Care Code Acute Fireworks Assembler for [facility] Diagnoses Epigastric pain R10.13 Atypical chest pain R07.89 CHF exacerbation I50.9 Pneumonia J18.9
--- NOTE | 2020-03-29 10:09 | PC.CHAP ---
Pastoral Care Encounter/Spiritual Assessment Type of Contact [] Declined edge inker uppers visit [] Patient/Family/Request visit [] Outpatient visit [] Follow-up visit [] Physician referral [] Code/Alert [x] Routine visit [] Staff referral [] Actively dying [] Patient sleeping [] Family support [] [] Out of room [] Palliative care [] [] Receiving care in room [] Pre-surgical visit [] Trauma [] Long length of stay [] ICU visit [] Other: Relational/Emotional Strength [] Patient feels connected with others/family/visitors/staff [] Distress [] Loneliness/isolation [] Abandonment Spirituality of Patient [] Person of Angela [] Attends Judaism of their Angela [] Believes in Prayer [] Reads Bible or Zoroastrianism materials [] There are Spiritual issues to be addressed [employer] Load And Unload Interventions [x] Prayer [x] Active listening [x] Non-anxious presence [x] Spiritual/emotional support [] Crisis/trauma care [] Spiritual counseling [] Bereavement support [] Provided bereavement packet [] Provided Bible/devotional materials [] Provided toy/stuffed animal, coloring book to patient or family member [] Provided Communion [] Anointing/[facility] [place] [] Salvation [x] Completed spiritual assessment [] Other: Impact on Illness or Injury [] Angry [] Fearful [] Anxious [] Often cries [] Exhaustion [] Unable to work [] Unable to attend pentecostal [] Unable to walk/stand [] Unable to read [] Unable to drive [] Unable to eat/drink [] Unable to sleep [] Unable to be with family [] Patient intubated [] Other: Summary patient resting well. Time spent with patient 5 min
[2020-03-29 10:24] LABS: Lipase 41 U/L (13-60)
[2020-03-29] MEDS: ipratropium-albuterol 3 mL Neb INHALATION ×3 (11:16→20:38)
[2020-03-29] MEDS: sucralfate 1 gm/10 mL Oral Liq UDC PO ×3 (11:37→20:18)
--- NOTE | 2020-03-29 12:52 | PC.RESP ---
PULMONARY REHAB INFORMATION SENT TO PATIENT.
--- NOTE | 2020-03-29 13:40 | PC.NURSE ---
DR. TO ORDERED TO GIVE ONE MORE 1230 DOSE OF 90MG LOVENOX, THEN CHANGE LOVENOX ORDER TO 40MG DAILY TO BEGIN TOMORROW.
[2020-03-29] MEDS: alum-mag-hydroxide-sime 30 mL UDC 15 ML PO (16:02)
[2020-03-29] MEDS: acetaminophen 500 mg Tablet 1000 MG PO (16:02)
[2020-03-29] MEDS: predniSONE 10 mg Tablet PO (17:37)
--- NOTE | 2020-03-29 19:42 | PC.NURSE ---
Dr. Shepherd called recieved order for denture adhesive PRN. Read back verbal order.
[2020-03-29] MEDS: fixodent 39 gm Tube 1 APPLIC DENTAL (20:18)
[2020-03-30] VITALS (11 sets, daily range): BP systolic 107–141; BP diastolic 61–91; PULSE 89–100; RESP 15–22; TEMP 36.5–37.2; O2SAT 93–96
[2020-03-30 04:28] LABS: Basophils % 0.4 %; Eosinophils # 0.1 10^3/uL (0.0-0.8); Eosinophils % 0.4 %; Hematocrit 48.5 % (42.0-52.0); Hemoglobin 15.4 g/dL (11.7-16.6); Lymphocytes # 1.3 10^3/uL (0.8-4.8); Lymphocytes % 11.6 %; Mean Corpuscular HGB Conc 31.8 g/dL (30.0-36.0); Mean Corpuscular Hemoglobin 29.1 pg (28.0-34.0); Mean Corpuscular Volume 91.7 fL (80-94); Mean Platelet Volume 9.3 fL (7.4-10.4); Monocytes # 0.7 10^3/uL (0.2-0.9); Neutrophils # 9.23 10^3/uL (1.8-7.7); Neutrophils % 80.8 %; Nucleated Red Blood Cells % 0 %; Platelet Count 230 10^3/cmm (130-400); Red Blood Count 5.29 10^6/uL (4.1-5.3); Red Cell Distribution Width 13.5 % (12.1-15.1); White Blood Count 11.4 10^3/uL (4.0-10.0)
--- NOTE | 2020-03-30 04:31 | PC.NURSE ---
End of shift: Patient has had a uneventful shift. Patient has rested well. Patient vitals remain stable. I spoke with the night time hospitalist who knew nothing about a stress test, but none was ordered for today. Patient has had no complaints of chest pain. Patient is alert and oriented. Will continue to monitor.
[2020-03-30 04:45] LABS: Alanine Aminotransferase 37 U/L (0-41); Albumin Level 3.6 g/dL (3.5-5.2); Alkaline Phosphatase 60 IU/L (40-130); Anion Gap 12.6 (5-19); Aspartate Amino Transferase 21 U/L (0-40); Blood Urea Nitrogen 25 mg/dL (8-23); Calcium 8.7 mg/dL (8.5-10.5); Carbon Dioxide 27 mmol/L (22-29); Chloride 102 mmol/L (98-107); Globulin 2.9 g/dL (1.3-4.6); Glucose 117 mg/dL (65-115); Osmolality Calculated 282 mOsm/kg (285-295); Potassium 4.6 mmol/L (3.5-5.1); Sodium 137 mmol/L (136-145); Total Bilirubin 0.7 mg/dL (0.15-1.2); Total Protein 6.5 g/dL (6.6-8.7)
[2020-03-30] MEDS: levoFLOXacin 750 mg Tablet PO (06:02)
[2020-03-30] MEDS: sucralfate 1 gm/10 mL Oral Liq UDC PO ×3 (06:02→16:44)
--- NOTE | 2020-03-30 06:42 | ECG_ITS ---
[facility] Test Date: 2020-03-30 Pat Name: Kelvin Flores Department: Room: 111 Gender: Male [place] Man: Hafsa Bocanegra : 1940 Requested By: Flakita Hernández Order Number: [id number] Julissa MD: Flakita Hernández M.D. Interpretive Statements NAME OF STUDY: LEXISCAN SESTAMIBI STRESS TEST INDICATION: Chest Pain PROCEDURE: At the baseline, the EKG revealed normal sinus rhythm with right bundle branch block. Occasional PVCs. The baseline blood pressure was 129/71 mm Hg with a heart rate of 90 beats/min. Lexiscan was infused over a period of 20 seconds. A total of 0.4 milligrams of Lexiscan was infused. The stress phase was continued for a total of 5 minutes. Heart rate at the end of the stress phase was 101 with a blood pressure 127/65. The EKG at the peak infusion revealed no significant changes. Sestamibi was injected 20 seconds after the Lexiscan infusion. Blood pressure at the end of the recovery phase was 108/68 with a heart rate of 92 per minute. CONCLUSION: 1. No significant EKG changes with the LexiScan infusion 2. No LexiScan induced chest pain or cardiac arrhythmia 3. Normal blood pressure and heart rate response 4. Sestamibi/sestamibi perfusion scan pending; see separate report. Electronically Signed On 03-31-2020 17:40:38 CDT by Flakita Hernández M.D. [id number]
--- NOTE | 2020-03-30 06:43 | NMCV_ITS ---
NM juan perf SPECT r/s* [id number] Kelvin Flores Age: 80 Gender: M : 1940 Exam Date: 03/30/2020 09:07 Ordering Phys: Flakita Hernández MD ([email or web address]) Technologist: EMELI Villarreal Exam Location: [facility] Indications: CHEST PAIN STRESS TEST [facility] IMAGE PROTOCOL Rest/Stress 1 Lexiscan Day Radiopharmaceutical Dose (mCi) Administration Site Administered by Rest: Tc-99m 10.9 IV EMELI Duncan Sestamibi Stress:Tc-99m 32.8 IV EMELI Villarreal Sestamidarinel Rest: 30-Mar-2020 60 Discovery 630 Stress: 30-Mar-2020 30 Discovery 630 0.4mg Lexiscan. Supine position only as patient was unable to lay prone. SPECT RESULTS Technical Quality: Excellent Raw Data Analysis: Normal Image Corrections: No attenuation or motion correction applied Summed Stress Score: 3 Summed Rest Score: 2 Summed Difference Score: 1 PERFUSION FINDINGS Small to moderate area of decreased tracer uptake in the basal mid and apical inferior and mid inferoseptal regions. Subtle area of reversibility was noted in the mid inferior region, with the SPECT imaging. However with the polar plot, no significant reversibility was noted FUNCTIONAL RESULTS (calculated via Gated SPECT) Stress Image LV EF (%): 70 Stress EDV (mL):64 TID: 1.95 Stress ESV (mL):19 FUNCTIONAL FINDINGS: Segmental wall motion analysis revealing no gross wall motion normalities IMPRESSIONS 1. Myocardial perfusion imaging revealing a small to moderate area of persistent decreased tracer uptake in the inferior wall and inferoseptal region, with associated reversibility, suggestive of myocardial scarring with a subtle area of matthew-infarct ischemia in the distribution of the right coronary artery. However because of the inconsistency, this could be artifactual. 2. Elevated transient ischemic dilatation ratio, may suggest endocardial ischemia. However the positive predictive value of this finding is low. 3. Normal LV ejection fraction 70%. 4. LV wall motion analysis revealing no gross wall motion normalities. 5. Normal LV volume. Compared to the previous study from 03/09/2019, the inferior wall changes appear little more prominent Dr Flakita Hernández MD FACC (Electronically Signed) Final Date: 30 March 2020 14:18 S
--- NOTE | 2020-03-30 08:11 | PC.NURSE ---
PATIENT DISCUSSED THAT HIS BACK PAIN IS FROM HIS BACK BEING OUT AND IS REQUESTING PHYSICAL THERAPY. THE PATIENT STATES THAT HE BELIEVES HIS BACK PAIN WAS FROM HIS BACK BEING THROWN OUT THE ENTIRE TIME OF HIS STAY BUT THAT NO ONE WOULD LISTEN TO HIS COMPLAINTS. THIS NURSE HAS BEEN THE PATIENT'S PRIMARY CARE NURSE ON DAY SHIFT SINCE HIS ARRIVAL AND ROUNDED WITH DR. BURK AND THE PATIENT HAS MADE NO MENTION OF THIS UNTIL THIS MORNING.
[2020-03-30] MEDS: ipratropium-albuterol 3 mL Neb INHALATION ×2 (08:16→13:38)
[2020-03-30] MEDS: acetaminophen 500 mg Tablet 1000 MG PO (08:22)
--- NOTE | 2020-03-30 08:30 | XRR_ITS ---
PROCEDURE INFORMATION: Exam: XR Thoracic Spine, 3 Views Exam date and time: 03/30/2020 8:33 AM Age: 80 years old Clinical indication: Pain in thoracic spine; Additional info: Back pain, chronic steroid use TECHNIQUE: Imaging protocol: XR of the thoracic spine, 3 views. COMPARISON: No relevant prior studies available. FINDINGS: Vertebrae: The thoracic vertebral bodies maintain height. There is a slight S-shaped curvature of the thoracolumbar spine. 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 Lungs: No pneumonia or pulmonary edema. Pleural space: No pleural effusion or pneumothorax. Heart/Mediastinum: The cardiac silhouette is not enlarged. Calcified mediastinal and hilar lymph nodes from prior granulomatous disease. Soft tissues: There are bilateral epicardial fat pads. 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 If there is continued concern for a mild or subtle fracture a CT scan would be helpful.
--- NOTE | 2020-03-30 08:30 | XRR_ITS ---
PROCEDURE INFORMATION: Exam: XR Lumbosacral Spine, 2 or 3 Views Exam date and time: 03/30/2020 8:33 AM Age: 80 years old Clinical indication: Low back pain TECHNIQUE: Imaging protocol: XR of the lumbosacral spine, 2 or 3 views. COMPARISON: CT angio chest abdomen pelvis 03/29/2020 1:31 AM FINDINGS: Vertebrae: Slight curvature of the thoracolumbar junction convex to the right. The lumbar vertebral bodies maintain height and sagittal alignment. The facets align normally. There is mild multilevel disc degeneration and facet arthropathy in the lower lumbar spine. No fracture. Soft tissues: No acute soft tissue abnormality. XR/XR lumbar spine 2-3V* [id number] IMPRESSION: Mild degenerative changes. No acute osseous abnormality.
[2020-03-30] MEDS: regadenoson 0.4 Mg/5 ml Syringe IVP (09:57)
[2020-03-30] MEDS: aminophylline 25 mg/mL SDV 10 mL IVP (10:01)
[2020-03-30] MEDS: lidocaine 5% Patch 1 PATCH TOPICAL (11:58)
[2020-03-30] MEDS: clopidogrel 75 mg Tablet PO (11:59)
[2020-03-30] MEDS: enoxaparin 40 mg/0.4 mL Syringe SUBCUT (11:59)
[2020-03-30] MEDS: FUROsemide 20 mg Tablet PO (12:00)
[2020-03-30] MEDS: pantoprazole DR 40 mg Tablet PO ×2 (12:00→17:13)
[2020-03-30] MEDS: finasteride 5 mg Tablet PO (12:00)
[2020-03-30] MEDS: aspirin 81 mg EC Tablet PO (12:00)
[2020-03-30] MEDS: predniSONE 10 mg Tablet PO ×2 (12:01→17:13)
[2020-03-30] MEDS: lisinopril 10 mg Tablet PO (12:01)
--- NOTE | 2020-03-30 13:27 | PC.NURSE ---
pt taken to [facility] for study at 845 with barbie in wheelchair and returned at noon.
--- NOTE | 2020-03-30 17:00 | P.PN_ITS ---
Subjective Subjective: Interval history: Patient is feeling much better. He has significant improvement of the epigastric/back pain. He underwent the myocardial perfusion imaging today. He was found to have a small area of inconsistent reversible defect in the apical inferior wall region. The transient ischemic dilatation ratio also was found to be elevated. Compared to the previous study there may not be a significant change. Medications: Medication Review Details: Current Medications Acetaminophen (Tylenol) 1,000 mg PO BID PRN PRN Reason: Pain Last Admin: 03/30/20 08:22 Dose: 1,000 mg Documented by: Al Hydrox/Mg Hydrox/Simethicone (Maalox) 15 ml PO DAILY PRN PRN Reason: INDIGESTION Last Admin: 03/29/20 16:02 Dose: 15 ml Documented by: Albuterol/Ipratropium (Duoneb) 3 ml INHALATION Q6H PRN PRN Reason: SHORTNESS OF BREATH Last Admin: 03/30/20 13:38 Dose: 3 ml Documented by: Aminophylline (Aminophylline) 25 mg IVP Q2M PRN PRN Reason: see dose instructions Stop: 03/31/20 07:34 Last Admin: 03/30/20 10:01 Dose: 25 mg Documented by: Aspirin (Aspirin Ec) 81 mg PO DAILY [facility] Last Admin: 03/30/20 12:00 Dose: 81 mg Documented by: Clopidogrel Bisulfate (Plavix) 75 mg PO DAILY [facility] Last Admin: 03/30/20 11:59 Dose: 75 mg Documented by: Denture Adhesive (Fixodent) 1 applic DENTAL PRN PRN PRN Reason: denture adhesive Last Admin: 03/29/20 20:18 Dose: 1 applic Documented by: Enoxaparin Sodium (Lovenox) 40 mg SUBCUT DAILY [facility] Last Admin: 03/30/20 11:59 Dose: 40 mg Documented by: Finasteride (Proscar) 5 mg PO DAILY [facility] Last Admin: 03/30/20 12:00 Dose: 5 mg Documented by: Furosemide (Lasix) 20 mg PO DAILY [facility] Last Admin: 03/30/20 12:00 Dose: 20 mg Documented by: Levofloxacin (Levaquin) 750 mg PO DAILY@0600 [facility]; Protocol Last Admin: 03/30/20 06:02 Dose: 750 mg Documented by: Lidocaine (Lidoderm 5% Patch) 1 patch TOPICAL DAILY [facility] Last Admin: 03/30/20 11:58 Dose: 1 patch Documented by: Lisinopril (Prinivil) 10 mg PO DAILY [facility] Last Admin: 03/30/20 12:01 Dose: 10 mg Documented by: Nitroglycerin (Nitrostat) 0.4 mg SUBLINGUAL Q5M PRN PRN Reason: CHEST PAIN Stop: 03/31/20 07:34 Ondansetron HCl (Zofran) 4 mg IVP Q2M PRN PRN Reason: NAUSEA Pantoprazole Sodium (Protonix) 40 mg PO BID [facility] Last Admin: 03/30/20 12:00 Dose: 40 mg Documented by: Prednisone (Prednisone) 10 mg PO BID [facility] Last Admin: 03/30/20 12:01 Dose: 10 mg Documented by: Sucralfate (Carafate Oral Liq) 1 gm PO AC&BEDTIME [facility] Last Admin: 03/30/20 16:44 Dose: 1 gm Documented by: Vitals/I&O/Wt Last Vital Signs Temp 98.4 F 03/30/20 16:00 Pulse 94 03/30/20 16:00 Resp 22 H 03/30/20 16:00 BP 121/79 03/30/20 16:00 Pulse Ox 93 03/30/20 16:00 03/30/20 03/30/20 03/30/20 06:59 14:59 22:59 Intake Total 360 / 360 Output Total 625 / 1170 375 / 375 275 / 650 Balance -625 / -10 -375 / -375 85 / -290 Weight last 48 hrs Weight 205 lb Physical Exam Narrative: EXAM NARRATIVE: GENERAL: The patient is alert and oriented times three. Not in any acute distress. HEENT: No significant pallor, icterus or lymphadenopathy. The fundus is not visualized NECK: Trachea appears to be central. No masses noted. No JVD or thyromegaly appreciated. No carotid bruit. RESPIRATORY: Chest is symmetrical. No intercostals muscle retraction or any accessory muscle activation. There is no chest wall tenderness. Breath sounds are heard bilaterally. No rales or rhonchi heard. No evidence of any consolidation. BREASTS: Deferred. HEART: The PMI is in the 5th left intercostals space just inside the midclavicular line. No palpable precordial events. S1 and S2 are normal. No S3 or S4 heard. No pericardial rub or any click heard. ABDOMEN: Currently has no epigastric tenderness. Bowel sounds are normally heard. : Deferred. RECTAL: Deferred. LYMPHATIC: No lymphadenopathy noted in the neck or groin. EXTREMITIES: No edema or cyanosis. No clubbing. The pulses are symmetrical bilaterally. The radial, femoral, dorsalis pedis and the posterior tibial pulses are palpated and found to be in good volume and amplitude. MUSCULOSKELETAL: Acute joint deformities or swelling SKIN: There are no significant scars or skin rash noted. NEUROPSYCHIATRIC: The patient is alert and oriented x3. Appears to be in a good mood. The higher functions are grossly within normal limits. No tremors or rigidity noted. Data : 03/30/20 04:00 03/30/20 04:00 A&P Assessment and plan (1) Elevated troponin level: I discussed with the patient, in detail, the implication of the test findings. In order to further evaluate his coronary status, he requires a cardiac catheterization. However since the patient is currently stable with no significant symptoms, there may not be an urgency in doing the procedure. The patient is wanting to go home. He may be kept on the current medications. Patient may consider a cardiac catheterization as an outpatient. Status: Acute (2) Epigastric pain: Has a history of GERD. He had a cholecystectomy. He has significant tenderness in epigastric region. Other intra-abdominal pathology need to be considered. Since the pain is significantly improved, patient may not require any specific intervention at this point. Consider further work-up, if he has recurrence. Status: Acute (3) Benign essential hypertension with target blood pressure below 140/90: Patient is currently normotensive. May continue on the current medications. Status: Resolved (4) Chronic obstructive pulmonary disease: The lung sounds are clear today. May continue on the current treatment measures. Status: Resolved Qualifiers: COPD type: unspecified COPD Qualified Code(s): J44.9 - Chronic obstructive pulmonary disease, unspecified Additional A&P Information If the patient continues remain stable, he may be discharged home today. I may see him in the office in 2 weeks. Based on his clinical progress, further management decisions will be made. Attestations Medical Necessity Statement*: Disposition as per the primary Coding Level of Care Code Acute Seed Tester for Chari Ortiz Diagnoses Elevated troponin level R79.89 Epigastric pain R10.13 Benign essential hypertension with target blood pressure below 140/90 I10 Chronic obstructive pulmonary disease J44.9 COPD type: unspecified COPD
--- NOTE | 2020-03-30 17:25 | PM.DCS ---
Discharge Providers Date of Admission: 03/28/20 23:26 Date of Discharge: March 30, 2020 Attending Provider at Admission: Lobito Shepherd MD Attending Provider at Discharge: Jasmeet Suazo Primary Care Provider: Yash Salinas Diagnoses at Discharge Discharge Diagnosis (1) Elevated troponin level: Status: Acute (2) Epigastric pain: Status: Acute (3) Benign essential hypertension with target blood pressure below 140/90: Status: Acute (4) Chronic obstructive pulmonary disease: Status: Acute Qualifiers: COPD type: unspecified COPD Qualified Code(s): J44.9 - Chronic obstructive pulmonary disease, unspecified Reason for Visit Reason for Visit: CP Hospital Course Hospital Course: 80-year-old gentleman with chronic oxygen dependent COPD, 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 He is suspected to have gastritis or PUD secondary to chronic steroid use, previously also on meloxicam, although says no longer is taking this. His PPI dose was increased. He was started on sucralfate. His symptoms were gradually improving. On CTA on presentation no PE was noted, without any sign of major vessel dissection on CTA chest or abdomen pelvis. No signs of bowel ischemia. With noted right lung pneumonia for which she has been treated with Levaquin. His oxygenation remained at baseline. His symptoms of pain improved, this morning he was having more pain also in his back. Reports chronic back pain which occasionally flares up as well. Abdominal tenderness which was present previously on palpation currently is much better. Given chronic prednisone use, x-ray of thoracic lumbar spine were obtained to exclude compression fracture as a cause of additional symptoms. This was not observed. Currently he is feeling much better and is requesting to be discharged home as soon as possible. He was reassessed by cardiology, and during this hospitalization actually underwent additional stress testing which showed some fixed defects with small surrounding area of ischemia. After detailed discussion with cardiology with regards to results, his current condition, risk factors, he elected to return home, continue conservative management, and follow-up with cardiology in clinic. With dyspepsia symptoms, past history of smoking, he may benefit from endoscopic evaluation on nonemergent basis. Please help him arrange for this. H pylori tests were ordered also in the hospital, with pending stool antigen, and final results will need to be followed up. Follow-up CBC is ordered in 3 days due to chronic steroid use, and since he started on low-dose aspirin. Physical Exam Const: COMMON NORMALS: no acute distress and patient oriented x3 GENERAL APPEARANCE: frail appearing NUTRITIONAL APPEARANCE: overweight HENMT: COMMON NORMALS: oropharynx normal Neck/C-Spine: COMMON NORMALS: no JVD Resp: COMMON NORMALS: normal respiratory effort and clear to auscultation bilaterally AUSCULTATION: clear to auscultation bilaterally Cardio: COMMON NORMALS: no JVD, regular rhythm, S1 normal heart sound present, S2 normal heart sound present and No murmurs present (Cardio) RHYTHM: regular rhythm HEART SOUNDS: S1 normal heart sound present and S2 normal heart sound present GI: COMMON NORMALS: Normal to inspection, nondistended, normoactive bowel sounds present, Soft to palpation and non-tender PALPATION: Yes Soft to palpation Extremity: COMMON NORMALS: no joint enlargement and no pedal edema GENERAL: Yes edema (1+) Neuro: COMMON NORMALS: patient oriented x3 and moves all extremities Skin: COMMON NORMALS: no rashes or lesions noted GENERAL SKIN EXAM: no rashes or lesions noted Discharge Data Data Completed and Pending: Completed Studies During Hospitalization Category Date Time Status CT angio chest ab domen pelvis Stat Cat Scan 03/29/20 00:55 Completed Sestamibi Stress Test Request Routi ne Exams 03/30/20 06:42 Draft XR lumbar spine 2 -3V* [id number] Routine Exams 03/30/20 08:30 Completed XR thoracic spine 3V* [id number] Routine Exams 03/30/20 08:30 Completed NM juan perf SPECT r/s* [id number] Routin e Nuc Med 03/30/20 06:43 Completed CV echo complete* [id number] Routine Ultrasound 03/29/20 00:16 Completed US gall bladder 7 [id number] Routine Ultrasound 03/29/20 09:25 Completed Pending at discharge Category Date Time Status Complete Blood Co unt w/Auto AM LABS Lab 03/31/20 04:00 Ordered Complete Blood Co unt w/Auto AM LABS Lab 04/01/20 04:00 Ordered Comprehensive Met abolic Panel AM LA BS Lab 03/31/20 04:00 Ordered Comprehensive Met abolic Panel AM LA BS Lab 04/01/20 04:00 Ordered Helicobacter Pylo ri AG Stool Routin e Lab 03/29/20 12:14 Received Labs from last 24 hours 03/30/20 03/30/20 04:00 04:00 WBC 11.4 H RBC 5.29 Hgb 15.4 Hct 48.5 MCV 91.7 MCH 29.1 MCHC 31.8 RDW 13.5 Plt Count 230 MPV 9.3 Neut % (Auto) 80.8 Lymph % (Auto) 11.6 [place] % (Auto) 6.0 Eos % (Auto) 0.4 Baso % (Auto) 0.4 Neut # (Auto) 9.23 H Lymph # (Auto) 1.3 [place] # (Auto) 0.7 Eos # (Auto) 0.1 Baso # (Auto) 0.0 Nucleated RBC % (a uto) 0 Nucleated RBCs # 0.0 Sodium 137 Potassium 4.6 Chloride 102 Carbon Dioxide 27 Anion Gap 12.6 BUN 25 H Creatinine 1.0 GFR Calculation Not Reportable Glucose 117 H Calculated Osmolal ity 282 L Calcium 8.7 Total Bilirubin 0.7 AST 21 ALT 37 Alkaline Phosphata se 60 Total Protein 6.5 L Albumin 3.6 Globulin 2.9 Vitals: Last Vital Signs Temp 98.4 F 03/30/20 16:00 Pulse 94 03/30/20 16:00 Resp 22 H 03/30/20 16:00 BP 121/79 03/30/20 16:00 Pulse Ox 93 03/30/20 16:00 Discharge Plan Discharge Patient Disposition: Home Condition: Stable Prescriptions: New sucralfate 100 mg/mL Suspension 1 g PO AC&BEDTIME Qty: 420 RF: 0 aspirin 81 mg Tablet,Delayed Release (Dr/Ec) 81 mg PO DAILY Qty: 30 RF: 0 levofloxacin 750 mg Tablet 750 mg PO DAILY@0600 Qty: 6 RF: 0 Continued prednisone 10 mg tablet 10 mg PO BID RF: 0 albuterol sulfate 90 mcg/actuation HFA aerosol inhaler 2 puff INHALATION Q6H PRN (Reason: Shortness Of Breath Or Wheezing) RF: 0 amlodipine 10 mg tablet 10 mg PO DAILY RF: 0 finasteride [Proscar] 5 mg tablet 5 mg PO DAILY RF: 0 budesonide-formoterol [Symbicort] 160-4.5 mcg/actuation HFA aerosol inhaler 2 puff INHALATION BID RF: 0 lidocaine 5 % adhesive patch,medicated 1 patch TOPICAL DAILY RF: 0 ipratropium-albuterol 0.5 mg-3 mg(2.5 mg base)/3 mL solution for nebulization 3 ml INHALATION Q6H PRN (Reason: Shortness Of Breath) RF: 0 acetaminophen [Tylenol Extra Strength] 500 mg tablet 1,000 mg PO BID PRN (Reason: Pain) RF: 0 furosemide [Lasix] 20 mg tablet 20 mg PO DAILY 30 Days Qty: 30 RF: 0 revefenacin 175 mcg/3 mL solution for nebulization 175 mcg INHALATION DAILY 30 Days Qty: 90 RF: 3 Perforomist 20 mcg/2 mL solution for nebulization 2 ml INHALATION Q12H 30 Days Qty: 120 RF: 3 Changed omeprazole 20 mg capsule,delayed release(DR/EC) 20 mg PO BID Qty: 60 RF: 0 Discharge Orders: Discharge Order (Routine); Ordered 03/30/20 Ordered By: Jasmeet Suazo Other Ambulatory Orders: Complete Blood Count w/Auto (Routine) Timeframe: 3 Days Location: Determined by Patient Ordered By: Jasmeet Suazo Referrals: Yash Salinas [Primary Care Provider] - 4-7 days Flakita Hernández MD [Physician] - 2 weeks Discharge Diet: Cardiac Discharge Activity: Increase activity as tolerated and Oxygen as instructed Activity Restrictions/Additional Instructions: Please discuss with your primary care doctor as well as cartographic technician about possibility of weaning down prednisone. At this time the symptoms of ear pain appear to be secondary to multiple reasons, 401 secondary to suspected gastritis or peptic ulcer, possibly secondary to prednisone. Please avoid any NSAIDs at home and continue to stay away from meloxicam. Due to suspicion of peptic ulcer disease your omeprazole dose is increased to 20 mg twice a day. Please discuss with your primary care doctor regarding additional evaluation by endoscopy on nonurgent basis to exclude other causes of your abdominal pain and screen for any malignancy. Please discuss also with your primary care doctor to check for possible H. pylori infection. Some of your right-sided discomfort appears to be also coming perhaps from pneumonia. Due to this an antibiotic is prescribed for you. Please follow-up with your primary care doctor with regards to your clinical progress and recovery from pneumonia. Please continue to use your oxygen as previously. Target [id number]%. If oxygen saturation remains persistently below that, please increase her oxygen flow and get in touch with your doctor. If you are very profoundly short of breath, having high fevers, severe chest pain, or other serious abnormality, please seek medical attention without delay in the emergency department. Please discuss with your primary care doctor regards to your chronic back pain. Please maintain a low salt intake. Continue Lasix at home. Please contact your doctor if you start experiencing worsening edema, or decreased urine output. Discharge Attestations Time Spent in Discharge Care*: greater than 30 min Quality Metrics Clinical Quality Measures During this hospital stay, did patient experience: None Coding Level of Care Code Acute Industrial Aerial Installer for Chari Cerratod Diagnoses Elevated troponin level R79.89 Epigastric pain R10.13 Benign essential hypertension with target blood pressure below 140/90 I10 Chronic obstructive pulmonary disease J44.9 COPD type: unspecified COPD
== END 2020-03-30 19:21 | disposition home or self-care (01) | DRG 291 ==
LOC: ER 23:48 → CSU 23:52
PROVIDERS: Admitting Provider Internal Medicine; PCP Physician Assistant Medical; Visit Provider Internal Medicine
DX: I11.0 Hypertensive heart disease with heart failure (principal); J18.9 Pneumonia, unspecified organism; J44.0 Chronic obstructive pulmonary disease with (acute) lower respiratory infection; I50.33 Acute on chronic diastolic (congestive) heart failure; Z99.81 Dependence on supplemental oxygen; Z79.52 Long term (current) use of systemic steroids; N40.0 Benign prostatic hyperplasia without lower urinary tract symptoms; K21.9 Gastro-esophageal reflux disease without esophagitis; I25.2 Old myocardial infarction; Z87.11 Personal history of peptic ulcer disease; H54.61 Unqualified visual loss, right eye, normal vision left eye; Z87.891 Personal history of nicotine dependence
CPT/HCPCS: 12345; 36415; 71275; 72072; 72100; 74174; 76705; 78452; 80048; 80053; 83690; 83880; 84484; 85025; 85378; 87338; 93005; 93017; 93306; 94640; 96372; 96374; 99283; A9500; J0280; J1650; J2785; J7512; Q9967

== ENCOUNTER → 2020-04-18 15:58 | Outpatient (BNVA) | payer MEDICARE, MEDICAID, SELFPAY | PROVIDERS: PCP Physician Assistant Medical; Referring Provider Physician Assistant Medical; Visit Provider Orthopaedic Surgery | DX: M25.511 Pain in right shoulder (principal) | CPT/HCPCS: 73030 ==